=== PATIENT | female | born 1990 | race Two or more races ===

== ENCOUNTER 2017-07-07 01:15 | Inpatient (IN) | payer OTHER ==
[~2017-07-07] VITALS: Ht 160 cm; Wt 65.8 kg
[2017-07-07] MEDS ORDERED: METHYLERGONOVINE MALEATE 0.2 MG/ML AMP IM ONE (01:22)
[2017-07-07] MEDS ORDERED: OXYTOCIN 10UNIT/ML 1ML VIAL ONE ×2 (01:22→02:15)
[2017-07-07] MEDS ORDERED: PHISODERM TOP SOLN 240ML BTL TOP ONE (01:58)
[2017-07-07] MEDS ORDERED: WITCH HAZEL-GLYCERIN PAD TOP ONE (01:58)
[2017-07-07] MEDS ORDERED: DERMOPLAST 60ML BOTTLE TOP ONE (01:58)
[2017-07-07] MEDS ORDERED: DERMOPLAST 60ML BOTTLE TOP PRN (02:00)
[2017-07-07] MEDS ORDERED: PHISODERM TOP SOLN 240ML BTL TOP PRN (02:00)
[2017-07-07] MEDS ORDERED: IBUPROFEN 600 MG TAB PO PRN (02:00)
[2017-07-07] MEDS ORDERED: WITCH HAZEL-GLYCERIN PAD TOP PRN (02:00)
[2017-07-07 02:57] LABS: Basophils # (auto) 0.1 uL; Basophils % (auto) 0.7 % (0.0-2.0); Eosinophils # (auto) 0 uL; Hematocrit 40.1 % (36.0-46.0); Hemoglobin 13.2 g/dL (12.2-16.2); Lymphocytes # (auto) 2.1 uL; Lymphocytes % (auto) 11.5 % (10.0-50.0); Mean Corpuscular Hemoglobin 30.7 pg (28.0-32.0); Mean Corpuscular Hgb Conc. 32.9 g/dL (32.0-36.0); Mean Corpuscular Volume 93.1 fL (80.0-100.0); Monocytes # (auto) 0.7 uL; Monocytes % (auto) 3.6 % (0.0-12.0); Neutrophils # (auto) 15.3 uL; Neutrophils % (auto) 84.2 % (37.0-80.0); Nucleated Red Blood Cells % 0.1 %; Platelet Count (auto) 224 10^3/uL (140-450); Red Blood Cells 4.31 10^6/uL (4.0-5.20); Red Cell Distribution Width 12.9 % (11.8-14.3); White Blood Cell 18.2 10^3/uL (4.4-10.8)
[2017-07-07 03:14] LABS: INR 0.87 (0.9-1.15); Partial Thromboplastin Time 26.4 sec (22.64-33.71); Prothrombin Time 9.5 sec (9.37-12.3)
[2017-07-07 03:23] LABS: Albumin 2.9 g/dL (3.4-5.0); BUN/Creatinine Ratio 18.9; Bilirubin, Total 0.5 mg/dL (0.2-1.0); Calcium 9.1 mg/dL (8.5-10.1); Potassium 3.7 mmol/L (3.5-5.1); Total Protein 7.3 g/dL (6.4-8.2); Uric Acid 5.8 mg/dL (2.6-6.0)
[2017-07-07 06:41] VITALS: BP 119/75
[2017-07-07] MEDS ORDERED: PREN27TA7 OR (07:10)
[2017-07-07] MEDS: DOCUSATE CALCIUM 240 MG CAP PO SCH (09:58)
[2017-07-07 10:51] LABS: Urine Bacteria NONE SEEN /hpf (None Seen); Urine Blood 3+ /uL (Negative); Urine Specific Gravity 1.015 (1.001-1.035); Urine WBC 214 /hpf (0 - 5)
[2017-07-07 11:00] VITALS: BP 119/79
[2017-07-07 12:41] LABS: Alcohol, Urine < 3.0 mg/dL (0-5); Amphetamine Screen, Urine NEGATIVE (NEGATIVE); Barbiturate Scree,Urine NEGATIVE (NEGATIVE); Benzodiazephine Screen, Urine NEGATIVE (NEGATIVE); Cannabinoid Screen, Urine NEGATIVE (NEGATIVE); Cocaine Screen, Urine NEGATIVE (NEGATIVE); Opiate Scree,Urine NEGATIVE (NEGATIVE); Phencyclidine Screen, Urine NEGATIVE (NEGATIVE)
[2017-07-07 15:00] VITALS: BP 114/79
[2017-07-07 19:05] VITALS: BP 108/77
[2017-07-07 22:52] VITALS: BP 114/71
[2017-07-08 03:00] VITALS: BP 123/82
[2017-07-08 06:54] VITALS: BP 137/84
[2017-07-08] MEDS: DOCUSATE CALCIUM 240 MG CAP PO SCH (10:28)
[2017-07-08 10:40] VITALS: BP 115/84
[2017-07-11 10:02] LABS: RPR Non Reactive (Non Reactive); Rubella Antibodies, IgG 4.76 index (Immune >0.99)
== END 2017-07-08 11:30 | disposition home or self-care (01) | DRG 775 ==
LOC: LDRP 01:15
PROVIDERS: ADMIT Specialist; ATTEND Specialist
PROC: 10E0XZZ Delivery of Products of Conception, External Approach (ICD-10-PCS; principal; 2017-07-07)
DX: Z39.0 Encounter for care and examination of mother immediately after delivery (principal); Z3A.38 38 weeks gestation of pregnancy
CPT/HCPCS: 36415; 59414; 80053; 80307; 81001; 84550; 85025; 85610; 85730; 86592; 86703; 86762; 86850; 86900; 86901; 87340; 96372